=== PATIENT | female | born 1990 | race American Indian/Alaskan Native ===

== ENCOUNTER 2018-11-11 12:42 | Emergency (ER) | payer OTHER ==
[2018-11-11] MEDS ORDERED: TYLENOL PO ONE (12:50)
--- NOTE | 2018-11-11 12:50 | Emergency Department Report ---
Chief Complaint: Sore Throat Stated Complaint: SORE THROAT/CHILLS Time Seen by Provider: 11/11/18 12:47 - HPI History of Present Illness: pt presents with a sore throat that began last night +fever hurts to swallow no sick contacts no PMHx no daily meds no allergies to meds +smoker, 1/2 PPD occ drinker +marijuana no other drug use rapid strep sent given tylenol in triage MSE screening note: Focused history and physical exam performed. Due to findings the following was ordered: rapid strep ED Disposition for MSE Condition: Stable
[2018-11-11] MEDS ORDERED: TYLENOL ONE (12:53)
[2018-11-11] MEDS ORDERED: IBUPROFEN PO ONE (13:20)
[2018-11-11] MEDS ORDERED: BICILLIN L-A IM ONE (13:20)
[2018-11-11] MEDS ORDERED: LIDOCAINE VISCOUS 2% MM ONE (13:21)
[2018-11-11 13:45] VITALS: BP 116/70
--- NOTE | 2018-11-11 13:48 | Emergency Department Report ---
ED ENT HPI - General Chief complaint: Sore Throat Stated complaint: SORE THROAT/CHILLS Time Seen by Provider: 11/11/18 12:47 Source: patient Mode of arrival: Ambulatory Limitations: No Limitations - History of Present Illness Initial comments: This is a 28-year-old female nontoxic, well nourished in appearance, no acute signs of distress presents to the ED with c/o of sore throat. Patient describes sore throat as swallowing razer blades. Patient agrees to fever and chills. Patient denies any headache, stiff neck, nausea, vomiting, chest pain, shortness of breath, numbness or tingling. Patient denies any drooling or hoarseness. Patient denies any allergies or significant past medical history. MD complaint: sore throat -: days(s) Location: throat Severity: mild Severity scale (0 -10): 8 Quality: aching Consistency: constant Improves with: none Worsens with: swallowing Associated Symptoms: fever, pain with swallowing, sore throat. denies: cough, gum swelling, toothache, tinnitus, hearing loss, discharge from ear, rhinorrhea - Related Data Previous Rx's Medication Instructions Recorded Last Taken Type Ibuprofen [Motrin] 600 mg PO Q6H PRN #20 tablet 11/11/18 Unknown Rx Nystas/Diphen/Xyl Visc/Mylanta 15 ml MM Q4H PRN 5 Days ml 11/11/18 Unknown Rx [Magic Mouthwash] Allergies Allergy/AdvReac Type Severity Reaction Status Date / Time No Known Allergies Allergy Unverified 11/11/18 12:45 ED Dental HPI - General Chief complaint: Sore Throat Stated complaint: SORE THROAT/CHILLS Time Seen by Provider: 11/11/18 12:47 Source: patient Mode of arrival: Ambulatory Limitations: No Limitations - Related Data Previous Rx's Medication Instructions Recorded Last Taken Type Ibuprofen [Motrin] 600 mg PO Q6H PRN #20 tablet 11/11/18 Unknown Rx Nystas/Diphen/Xyl Visc/Mylanta 15 ml MM Q4H PRN 5 Days ml 11/11/18 Unknown Rx [Magic Mouthwash] Allergies Allergy/AdvReac Type Severity Reaction Status Date / Time No Known Allergies Allergy Unverified 11/11/18 12:45 ED Review of Systems ROS: Stated complaint: SORE THROAT/CHILLS Other details as noted in HPI Constitutional: chills, fever Eyes: denies: eye pain, eye discharge, vision change ENT: throat pain. denies: ear pain Respiratory: denies: cough, shortness of breath, wheezing Cardiovascular: denies: chest pain, palpitations Endocrine: no symptoms reported Gastrointestinal: denies: abdominal pain, nausea, diarrhea Genitourinary: denies: urgency, dysuria, discharge Musculoskeletal: denies: back pain, joint swelling, arthralgia Skin: denies: rash, lesions Neurological: denies: headache, weakness, paresthesias Psychiatric: denies: anxiety, depression Hematological/Lymphatic: denies: easy bleeding, easy bruising ED Past Medical Hx - Past Medical History Previous Medical History?: No - Surgical History Past Surgical History?: No - Social History Smoking Status: Current Every Day Smoker Substance Use Type: Alcohol, Marijuana, Non Opiate Pain - Medications Home Medications: Home Medications Medication Instructions Recorded Confirmed Last Taken Type Ibuprofen [Motrin] 600 mg PO Q6H PRN #20 tablet 11/11/18 Unknown Rx Nystas/Diphen/Xyl Visc/Mylanta 15 ml MM Q4H PRN 5 Days ml 11/11/18 Unknown Rx [Magic Mouthwash] ED Physical Exam - General Limitations: No Limitations General appearance: alert, in no apparent distress - Head Head exam: Present: atraumatic, normocephalic - Expanded ENT Exam Expanded Ear exam: Present: normal external inspection Mouth exam: Present: normal external inspection. Absent: drooling, trismus, muffled voice Throat exam: Positive: tonsillar erythema, tonsillomegaly (2+), other (uvula midline). Negative: tonsillar exudate, R peritonsillar mass, L peritonsillar mass - Neck Neck exam: Present: normal inspection, full ROM, lymphadenopathy (bilateral tonsillar). Absent: tenderness, meningismus - Respiratory Respiratory exam: Present: normal lung sounds bilaterally. Absent: respiratory distress, wheezes, rales, rhonchi, stridor, chest wall tenderness, accessory muscle use, decreased breath sounds, prolonged expiratory - Cardiovascular Cardiovascular Exam: Present: regular rate, normal rhythm, tachycardia, normal heart sounds. Absent: irregular rhythm, systolic murmur, diastolic murmur, rubs, gallop - Extremities Exam Extremities exam: Present: normal inspection, full ROM - Back Exam Back exam: Present: normal inspection, full ROM - Neurological Exam Neurological exam: Present: alert, oriented X3 - Psychiatric Psychiatric exam: Present: normal affect, normal mood - Skin Skin exam: Present: warm, dry, intact, normal color. Absent: rash ED Course Vital Signs 11/11/18 11/11/18 11/11/18 12:47 12:55 13:35 Temperature 100.6 F H Pulse Rate 115 H Respiratory 20 20 17 Rate Blood Pressure 149/83 O2 Sat by Pulse 97 Oximetry 11/11/18 13:36 Temperature Pulse Rate Respiratory 16 Rate Blood Pressure O2 Sat by Pulse Oximetry - Reevaluation(s) Reevaluation #1: 11/11/18 13:46 Patient is speaking in full sentences with no signs of distress noted. ED Medical Decision Making - Medical Decision Making This is a 28-year-old female that presents with strep pharyngitis. Patient is stable was examined by me. There is no drooling. No tonsillar abscess noted. Uvula is midline. Patient received Bicillin IM in the ED. Vital signs are stable. Patient is not febrile and normal heart rate. Patient was instructed to Follow-up with a primary care doctor in 3-5 days or if symptoms worsen and continue return to emergency room as soon as possible. At time of discharge, the patient does not seem toxic or ill in appearance. No acute signs of distress noted. Patient agrees to discharge treatment plan of care. No further questions noted by the patient. Critical care attestation.: If time is entered above; I have spent that time in minutes in the direct care of this critically ill patient, excluding procedure time. ED Disposition Clinical Impression: Strep pharyngitis Disposition: DC-01 TO HOME OR SELFCARE Is pt being admited?: No Does the pt Need Aspirin: No Condition: Stable Instructions: Strep Throat (ED) Additional Instructions: Follow-up with a primary care doctor in 3-5 days or if symptoms worsen and continue return to emergency room as soon as possible. Prescriptions: Nystas/Diphen/Xyl Visc/Mylanta [Magic Mouthwash] 15 ml MM Q4H PRN 5 Days ml PRN Reason: Sore Throat Ibuprofen [Motrin] 600 mg PO Q6H PRN #20 tablet PRN Reason: Pain/Fever Referrals: PRIMARY CARE, [Referring] - 3-5 Days NATALIE ROMAN MD [Staff Physician] - 3-5 Days [facility] [Outside] - 3-5 Days [facility] [Outside] - 3-5 Days Forms: Work/School Release Form(ED)
== END 2018-11-11 14:10 | disposition home or self-care (01) ==
LOC: ED 12:42
DX: J02.0 Streptococcal pharyngitis (principal); F17.200 Nicotine dependence, unspecified, uncomplicated; F12.10 Cannabis abuse, uncomplicated
CPT/HCPCS: 87430; 96372; 99283; J0561

== ENCOUNTER 2020-09-24 12:06 | Emergency (ER) | payer OTHER ==
[2020-09-24 12:18] VITALS: BP 123/63
== END 2020-09-24 14:27 ==
LOC: ED 12:06
DX: Z34.01 Encounter for supervision of normal first pregnancy, first trimester (principal); Z53.21 Procedure and treatment not carried out due to patient leaving prior to being seen by health care provider

== ENCOUNTER 2020-09-24 17:11 | Emergency (ER) | payer MEDICAID, OTHER ==
[2020-09-24 17:55] VITALS: BP 113/60
--- NOTE | 2020-09-24 19:06 | Emergency Department Report ---
ED General Adult HPI - General Chief complaint: Medical Clearance Stated complaint: Time Seen by Provider: 09/24/20 18:00 Source: patient Mode of arrival: Ambulatory Limitations: No Limitations - History of Present Illness Initial comments: 29-year-old obese abdomen female emerge department complaining very strong possibility for after receiving 2+ home test came to the emergency department to be evaluated for and confirmation. Ports no fever, chills, sweats. Ports no vaginal discharge, no chest pain, no pal pitations, no nausea, no vomiting. - Related Data Home Medications Medication Instructions Recorded Confirmed Last Taken No Known Home Medications [No 09/24/20 09/24/20 Unknown Reported Home Medications] Allergies Allergy/AdvReac Type Severity Reaction Status Date / Time bee venom protein (honey bee) AdvReac Anaphylaxis Verified 09/24/20 12:18 ED Review of Systems ROS: Stated complaint: Other details as noted in HPI Comment: All other systems reviewed and negative ED Past Medical Hx - Past Medical History Previous Medical History?: No - Surgical History Past Surgical History?: No - Social History Smoking Status: Never Smoker Substance Use Type: None - Medications Home Medications: Home Medications Medication Instructions Recorded Confirmed Last Taken Type No Known Home Medications [No 09/24/20 09/24/20 Unknown History Reported Home Medications] ED Physical Exam - General Limitations: No Limitations General appearance: alert, in no apparent distress - Head Head exam: Present: atraumatic, normocephalic - Eye Eye exam: Present: normal appearance - ENT ENT exam: Present: mucous membranes moist - Neck Neck exam: Present: normal inspection - Respiratory Respiratory exam: Present: normal lung sounds bilaterally. Absent: respiratory distress - Cardiovascular Cardiovascular Exam: Present: regular rate, normal rhythm. Absent: systolic murmur, diastolic murmur, rubs, gallop - GI/Abdominal GI/Abdominal exam: Present: soft, normal bowel sounds - Extremities Exam Extremities exam: Present: normal inspection - Back Exam Back exam: Present: normal inspection - Neurological Exam Neurological exam: Present: alert, oriented X3 - Psychiatric Psychiatric exam: Present: normal affect, normal mood - Skin Skin exam: Present: warm, dry, intact, normal color. Absent: rash ED Course Vital Signs 09/24/20 17:52 Temperature 99.3 F Pulse Rate 79 Respiratory 18 Rate Blood Pressure 113/60 O2 Sat by Pulse 99 Oximetry ED Medical Decision Making - Lab Data Lab Results 09/24/20 Range/Units 18:10 HCG, Quant 49205 H (0-4) mIU/mL - Medical Decision Making 9-year-old female presents department for confirmation of her was found to have elevated hCG quantitative. Critical care attestation.: If time is entered above; I have spent that time in minutes in the direct care of this critically ill patient, excluding procedure time. ED Disposition Clinical Impression: Positive blood test Disposition: TO HOME OR SELFCARE Is pt being admited?: No Does the pt Need Aspirin: No Condition: Stable Instructions: Care, and the Partner's Role, Home Test Information Additional Instructions: Please be sure to follow-up with [facility] for your definitive management of your . This present time there is no indication for any urgent or even emergency /first trimester or second trimester conditions. Referrals: PRIMARY CARE [Primary Care Provider] - 3-5 Days [facility] [Provider Group] - 3-5 Days [facility] [Provider Group] - 3-5 Days
== END 2020-09-24 19:56 | disposition home or self-care (01) ==
LOC: ED 17:11
DX: Z32.01 Encounter for pregnancy test, result positive (principal); Z91.030 Bee allergy status
CPT/HCPCS: 36415; 84702

== ENCOUNTER 2021-04-29 20:24 | Inpatient (IN) | payer MEDICAID ==
[2021-04-29] MEDS ORDERED: LACTATED RINGERS 1,000 ML ONE (21:40)
[2021-04-29] MEDS ORDERED: FAMOTIDINE 20 MG/2 ML INJ IV ONE ×2 (21:42→22:21)
[2021-04-29] MEDS ORDERED: ceFAZolin/Water 2 GM/20 ML 2 GM/20 ML SYRINGE IV ONE (21:42)
[2021-04-29] MEDS ORDERED: METOCLOPRAMIDE 10 MG/2 ML INJ ONE (21:42)
[2021-04-29] MEDS ORDERED: BICITRA ORAL LIQD 30ML ONE (21:42)
[2021-04-29] MEDS ORDERED: OXYTOCIN DRIP 30,000 MILLIUNITS/500 ML BAG IV ONE (21:43)
--- NOTE | 2021-04-29 22:06 | Ultrasound Report ---
ULTRASOUND OBSTETRIC LIMITED INDICATION / CLINICAL INFORMATION: viability. Clinical Gestational Age (GA) in weeks, days: 39, 2 TECHNIQUE: Transabdominal. COMPARISON: None available. FINDINGS: HEART RATE (beats per minute): 0 PRESENTATION: Cephalic. ADDITIONAL FINDINGS: None. IMPRESSION: 1. demise Signer Name: Will Rodriguez DO Signed: 04/29/2021 10:02 PM Workstation Name: [email or web address] (acquired by [employer] in [id number]
[2021-04-29] MEDS ORDERED: METOCLOPRAMIDE 10 MG/2 ML INJ IV ONE (22:21)
[2021-04-29] MEDS ORDERED: BICITRA ORAL LIQD 30ML PO ONE (22:21)
[2021-04-29] MEDS ORDERED: LACTATED RINGERS 1,000 ML IV SCH (22:30)
[2021-04-29] MEDS ORDERED: ceFAZolin/Water 2 GM/20 ML 2 GM/20 ML SYRINGE IV NR (23:00)
[2021-04-29] MEDS ORDERED: OXYTOCIN DRIP 30 UNITS/500 ML BAG IV SCH (23:00)
[2021-04-29 23:08] LABS: Basophils % (Auto) 0.6 % (0.0-1.8); Eosinophils % (Auto) 0.5 % (0.0-4.3); Hematocrit 39.8 % (30.3-42.9); Hemoglobin 13.4 gm/dl (10.1-14.3); Lymphocytes # (Auto) 1.9 K/mm3 (1.2-5.4); Lymphocytes % (Auto) 27.6 % (13.4-35.0); Mean Corpuscular HGB Conc 34 % (30-34); Mean Corpuscular Volume 79 fl (79-97); Monocytes # (Auto) 0.4 K/mm3 (0.0-0.8); Monocytes % (Auto) 5.8 % (0.0-7.3); Platelet Count 336 K/mm3 (140-440); Red Blood Count 5.07 M/mm3 (3.65-5.03); Red Cell Distribution Width 16.2 % (13.2-15.2)
--- NOTE | 2021-04-29 23:16 | History and Physical Report ---
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 She is GBS Negative. 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 Family/Genetic History: diabetes, hypertension Social history: no significant social history - Obstetrical History Expected Date of Delivery: 05/06/21 Actual Gestation: 39 Week(s) 0 Day(s) : 1 Medications and Allergies Allergies Allergy/AdvReac Type Severity Reaction Status Date / Time bee venom protein (honey bee) AdvReac Anaphylaxis Verified 04/29/21 21:53 Home Medications Medication Instructions Recorded Confirmed Last Taken Type No Known Home Medications [No 09/24/20 09/24/20 Unknown History Reported Home Medications] Active Meds: Active Medications Lactated Ringer's (Lactated Ringers) 1,000 mls @ 2,250 mls/hr IV PREOP LISANDRA Stop: 04/30/21 22:57 Oxytocin/Sodium Chloride (Pitocin/Ns 30 Unit/500ml) 30 units in 500 mls @ 0 mls/hr IV TITR LISANDRA; Protocol Cefazolin Sodium (Ancef/Sterile Water 2 Gm/20 Ml) 2 gm in 20 mls @ 80 mls/hr IV PREOP NR; Protocol Stop: 04/30/21 22:59 Review of Systems All systems: negative - Vital Signs Vital signs: Vital Signs Pulse Pulse Ox 97 H 98 04/29/21 21:25 04/29/21 21:25 Temp Pulse Resp BP Pulse Ox 99 F 112 H 19 124/69 96 04/29/21 21:57 04/29/21 22:55 04/29/21 21:57 04/29/21 22:50 04/29/21 22:55 - Physical Exam Breasts: Positive: deferred Abdomen: Positive: soft (gravid, obese ) Uterus: Positive: enlarged (gravid ) Extremities: Positive: edema (trace ) - Obstetrical Uterine Contraction Monitor Mode: External Uterine Contraction Pattern: Absent Uterine Tone Measurement Phase: Resting Results Result Diagrams: 04/29/21 Unknown Abnormal lab results 04/29/21 04/29/21 Range/Units 22:08 Unknown RBC 5.07 H (3.65-5.03) M/mm3 MCH 26 L (28-32) pg RDW 16.2 H (13.2-15.2) % POC Glucose 159 H (70-105) mg/dL All other labs normal. 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
[2021-04-30] MEDS ORDERED: METHYLERGONOVINE MALEATE 0.2 MG/ML VIAL IM ONE (00:32)
[2021-04-30] MEDS ORDERED: HYDROmorphone 1 MG/1 ML INJ IV PRN (00:36)
[2021-04-30] MEDS ORDERED: PROMETHAZINE 25 MG TAB PO PRN (00:36)
[2021-04-30] MEDS ORDERED: PROMETHAZINE 25 MG RECT SUPP PR PRN (00:36)
[2021-04-30] MEDS ORDERED: NalbUPHINE 10 MG/1 ML INJ IV PRN (00:36)
[2021-04-30] MEDS ORDERED: ONDANSETRON 4 MG/2 ML INJ IV PRN ×2 (00:36→04:35)
[2021-04-30] MEDS ORDERED: NALOXONE 0.4 MG/1 ML INJ IV PRN ×2 (00:36→04:35)
[2021-04-30] MEDS ORDERED: diphenhydrAMINE 50 MG/ML VIAL IV PRN (00:36)
--- NOTE | 2021-04-30 00:37 | Anesthesia Day of Surgery ---
Anesthesia Day of Surgery - Day of Surgery Patient Examined: Yes Patient H&P Reviewed: Yes Patient is NPO: Yes Beta Blockers: No Cardiac Clearance: No Pulmonary Clearance: No Hector's Test: N/A
--- NOTE | 2021-04-30 00:38 | Anesthesia Consultation ---
Anesthesia Consult and Med Hx Date of service: 04/30/21 - Airway Anesthetic Teeth Evaluation: Good ROM Head & Neck: Adequate Mental/Hyoid Distance: Adequate Mallampati Class: Class III Intubation Access Assessment: Possibly Difficult - Pulmonary Exam CTA: Yes - Cardiac Exam Cardiac Exam: RRR - Pre-Operative Health Status ASA Pre-Surgery Classification: ASA2 Proposed Anesthetic Plan: Spinal Nerve Block: TAP - Pulmonary Hx Smoking: No Hx Asthma: No COPD: No Hx Pneumonia: No Hx Sleep Apnea: No - Cardiovascular System Hx Hypertension: No Hx Heart Attack/AMI: No Hx Angina: No - Central Nervous System Hx Seizures: No Hx Psychiatric Problems: No - Gastrointestinal Hx Gastroesophageal Reflux Disease: No - Endocrine Hx Renal Disease: No Hx End Stage Renal Disease: No Hx Liver Disease: No Hx Insulin Dependent Diabetes: No Hx Non-Insulin Dependent Diabetes: No Hx Hypothyroidism: No Hx Hyperthyroidism: No - Hematic Hx Anemia: No Hx Sickle Cell Disease: No - Other Systems Hx Alcohol Use: No Hx Obesity: Yes
[2021-04-30] MEDS ORDERED: BUPIVACAINE/PF (0.5%) 5 MG/1 ML 30 ML VIAL INFILTRATI ONE (00:42)
[2021-04-30] MEDS ORDERED: KETOROLAC 30 MG/1 ML INJ ONE (00:42)
[2021-04-30] MEDS ORDERED: MIDAZOLAM 2 MG/2 ML INJ ONE (00:52)
[2021-04-30] MEDS ORDERED: ceFAZolin/STERILE WATER 2 GM/20 ML SYRINGE IV ONE (01:15)
[2021-04-30] MEDS ORDERED: WATER FOR IRRIG STERILE 1,500 ML BOTTLE IR ONE (01:25)
[2021-04-30] MEDS ORDERED: SODIUM CHLORIDE 0.9% IRR 1,500 ML BOTTLE IR ONE (01:25)
[2021-04-30] MEDS ORDERED: ePHEDrine SULFATE 50 MG/1 ML INJ ONE (01:27)
[2021-04-30] MEDS ORDERED: PHENYLEPHRINE/NS 1,000 MCG/10 ML SYRINGE (OR USE) IV ONE (01:27)
--- NOTE | 2021-04-30 02:33 | Procedure Note ---
OB Delivery Note - Delivery Date of Delivery: 04/30/21 Surgeon: JOSE COUGHLIN Estimated blood loss: other (367 mL) - Section Preop diagnosis: other ( demise ) Postop diagnosis: same section procedure: section Disposition: PACU Complications: none Narrative: Please see operative report - A at 1 minute: 0 at 5 minutes: 0 Infant Gender: Female (weight pending @ 0142 am)
--- NOTE | 2021-04-30 02:33 | Operative Report ---
Operative Report Operative Report: Date of procedure: April 30, 2021 Preoperative diagnosis: 1) IUP at 39w0d 2) Demise 3) Gestational Diabetes 4) Morbid Obesity Postoperative diagnosis: Same Procedure: Primary low transverse section Surgeon: Chel Escobar M.D. Anesthesia: Regional Findings: 1) Viable female , Apgars 0 and 0, weight pending in cephalic presentation. Cord presenting in front of head. Nuchal cord. Formed meconium. 2) Normal-appearing uterus ovaries and tubes Estimated blood loss: 354 mL IV fluids: 1000 mL Urine output: 100 mL, clear at the end of the procedure Drains: Chauhan to gravity Specimens: None Complications:None. Counts correct x 3 Disposition: Stable to PACU Indication for procedure: Pt is a 30 year old primigravida at 39w0d presented for induction secondary to morbid obesity and gestational diabetes and was found to have an intrauterine demise. She elects delivery. Operation in detail: After the risks, benefits, alternatives and complications were explained to the patient she gave informed consent for the procedure. She was subsequently taken to the operating room where regional anesthesia was noted to be adequate. She was placed in the dorsal supine position with leftward tilt and prepped and draped in a normal sterile fashion. heart tones were noted prior to incision. A timeout was performed. A Pfannenstiel skin incision was made with the knife and carried down to the layer of the fascia with the Bovie. The fascia was incised in the midline and the fascial incision was extended bilaterally with the Bovie. The fascial incision was then stretched. The rectus muscles were then in the midline and partially transected for adequate visualization. The peritoneum was then entered bluntly. The peritoneal incision was extended with good visualization of the bladder. The peritoneal incision was then stretched. An Nicolas retractor was placed. The bladder blade was then placed. The vesicouterine peritoneum was grasped with smooth pick ups and incised with Metzenbaum scissors. A bladder flap was then created digitally and the bladder blade was replaced. A transverse incision was made in the lower uterine segment with a knife and extended bilaterally with the bandage scissors. Amniotomy was performed with egress of clear fluid. head delivered with ease, followed by shoulders and body. bulb suctioned at delivery. Cord clamped and cut. handed to NICU staff in attendance. Cord blood was collected. The placenta was then delivered manually. The uterus was then exteriorized and cleared of all clots and debris. The hysterotomy was then reapproximated with 0 Moncryl in a running locked fashion. A second layer of the same suture was used in imbricating fashion. The hysterotomy was inspected and hemostasis was noted. The gutters were irrigated and cleared of all clots and debris. The uterus was placed back into the peritoneal cavity. The hysterotomy was again inspected and noted to be hemostatic. Surgicel was placed over the hysterotomy. The Nicolas retractor was removed. The peritoneum was reapproximated with 0 Monocryl in a running fashion incorporating the rectus muscles. Surgicel was placed over the rectus muscles. The fascia was reapproximated with 0 Vicryl in a running fashion. The subcutaneous tissue was reapproximated with 3-0 Vicryl in a running fashion. The skin was reapproximated with 3-0 Monocryl in a subcuticular fashion. The incision was then covered with steri strips and a pressure dressing. The procedure was then ended. The patient tolerated the procedure well and was taken to the PACU in stable condition. All instrument, lap, and needle counts were correct 3.
--- NOTE | 2021-04-30 02:35 | Progress Note ---
Spinal Anesthesia Block - Spinal Anesthesia Block Start Time: 01:00 Stop Time: 01:05 Performed by:: JUAN ESTRADA Procedure: Spinal anesthesia block is being performed for [C/S]. H&P, labs have been reviewed. Patient's questions and concerns have been answered. Informed consent has been performed. Timeout has was performed. Patient in sitting position on side of bed. Sterile prep and drape was performed. 3 mL 1% lidocaine skin wheal at L [3]-L [4]. Needle introducer advanced. 25-gauge spinal needle advanced, [+] CSF [-] blood. [Marcaine 10mg and Precedex 5mcg] Spinal dose was given. All needles removed. Patient tolerated procedure well.
[2021-04-30] MEDS ORDERED: ceFAZolin/NS 1 GM/50 ML 1 GM/50 ML BAG IV SCH (04:35)
[2021-04-30] MEDS ORDERED: SIMETHICONE 80 MG CHEW TAB PO PRN (04:35)
[2021-04-30] MEDS ORDERED: ACETAMINOPHEN 325 MG TAB PO PRN (04:35)
[2021-04-30] MEDS ORDERED: LANOLIN/ZINC/DIMETHICONE (LANSINOH) 7 GM TP PRN (04:35)
[2021-04-30] MEDS ORDERED: WITCH HAZEL/ GLYCERIN PAD TP PRN (04:35)
[2021-04-30] MEDS ORDERED: OXYTOCIN DRIP 30 UNITS/500 ML BAG IV SCH (04:35)
[2021-04-30] MEDS ORDERED: MAGNESIUM HYDROXIDE (MOM) ORAL LIQD UDC PO PRN (04:35)
[2021-04-30] MEDS: KETOROLAC 30 MG/1 ML INJ IV SCH ×4 (05:37→22:00)
--- NOTE | 2021-04-30 06:46 | Ultrasound Report ---
Limited OB ultrasound INDICATION: demise FINDINGS: No heart rate is identified. Single intrauterine in cephalic position. IMPRESSION: No heart rate suggesting demise. Signer Name: Matt Zarco MD Signed: 04/30/2021 6:42 AM Workstation Name: [id number]
--- NOTE | 2021-04-30 08:34 | Progress Note ---
Assessment and Plan A: DOS s/p primary at 39 wks for demise GDM Morbid Obesity P: Routine postoperative care Subjective - Subjective Date of service: 04/30/21 Principal diagnosis: DOS s/p primary for demise, GDM, MO Interval history: Patient has not been able to sleep since her surgery. She denies any new concerns. Patient reports: no voiding normally, no flatus, no ambulating normally [place]: Objective - Vital Signs Latest vital signs: Vital Signs Temp Pulse Resp BP BP Pulse Ox Pulse Ox 04/30/21 07:03 18 99 04/30/21 04:30 98.4 F 100 H 18 103/53 98 04/30/21 03:30 90 17 117/63 100 04/30/21 03:15 74 15 116/61 100 04/30/21 03:00 81 14 111/60 99 04/30/21 02:45 100 H 13 104/58 100 04/30/21 02:40 84 14 106/54 99 04/30/21 02:35 100 H 14 100/50 100 04/30/21 02:30 97.5 F L 102 H 17 88/42 98 04/30/21 00:43 98.2 F 100 H 113/56 04/29/21 22:55 112 H 96 04/29/21 22:50 101 H 124/69 100 04/29/21 22:45 98 H 100 04/29/21 22:40 96 H 99 04/29/21 22:35 106 H 99 04/29/21 22:34 100 H 128/66 04/29/21 22:30 104 H 99 04/29/21 22:25 107 H 99 04/29/21 22:20 103 H 100 04/29/21 22:19 107 H 159/103 04/29/21 22:15 100 H 99 04/29/21 22:10 106 H 100 04/29/21 22:05 105 H 100 04/29/21 22:00 107 H 99 04/29/21 21:57 99 F 113 H 19 128/70 100 04/29/21 21:55 105 H 99 04/29/21 21:50 98 H 128/70 99 04/29/21 21:45 121 H 99 04/29/21 21:40 112 H 100 04/29/21 21:35 105 H 98 04/29/21 21:30 114 H 98 04/29/21 21:25 97 H 98 Intake and Output 04/29/21 04/30/21 04/30/21 22:59 06:59 14:59 Intake Total 1500 Output Total 460 Balance 1040 Intake: IV 1500 Output: Urine 460 Uretheral (Chauhan) 180 Other: Weight 98.883 kg Estimated Blood Loss 367 - Exam Breasts: Present: deferred Abdomen: Present: soft, distention (moderate ) Extremities: Present: edema (trace) Incision: Present: dressed - Labs Labs: Abnormal lab results 04/29/21 04/29/21 Range/Units 22:08 Unknown RBC 5.07 H (3.65-5.03) M/mm3 MCH 26 L (28-32) pg RDW 16.2 H (13.2-15.2) % POC Glucose 159 H (70-105) mg/dL
[2021-04-30] MEDS ORDERED: ZOLPIDEM 5 MG TAB PO PRN (09:30)
[2021-04-30] MEDS: FERROUS SULFATE 325 MG TAB PO SCH (10:33)
[2021-04-30] MEDS: ceFAZolin/NS 1 GM/50 ML 1 GM/50 ML BAG IV SCH ×2 (10:34→17:37)
[2021-04-30] MEDS ORDERED: LACTATED RINGERS 1,000 ML ONE (10:40)
[2021-04-30] MEDS ORDERED: LACTATED RINGERS 1000 ML IV SOLN IV SCH (12:30)
--- NOTE | 2021-04-30 13:38 | Post Anesthesia Evaluation ---
- Post Anesthesia Evaluation Patient Participated: Yes Airway Patent: Yes Stable Respiratory Function: Yes Nausea/Vomiting: No Temp > 96.8F: Yes Pain Manageable: Yes Adequeate Hydration: Yes Anesthesia Complications: No Block Receding Appropriately: Yes Patient on Ventilator: No
[2021-04-30] MEDS: oxyCODONE /ACETAMINOPHEN 5-325MG TAB PO PRN ×2 (14:44→23:42)
[2021-04-30 16:57] LABS: Hematocrit 31.2 % (30.3-42.9); Hemoglobin 10.7 gm/dl (10.1-14.3)
[2021-05-01] MEDS ORDERED: TETANUS,DIPH,PERTUSS(ACELL) VACCINE 0.5 ML SYRINGE IM ONE (02:46)
[2021-05-01] MEDS ORDERED: MEASLES, MUMPS & RUBELLA 12,500 UNIT/0.5 ML VACCINE SUB-Q ONE (02:46)
[2021-05-01] MEDS: oxyCODONE /ACETAMINOPHEN 5-325MG TAB PO PRN ×3 (08:05→21:35)
[2021-05-01] MEDS: FERROUS SULFATE 325 MG TAB PO SCH (09:41)
[2021-05-01] MEDS: IBUPROFEN 800 MG TAB PO PRN ×2 (10:59→17:12)
--- NOTE | 2021-05-01 16:47 | Progress Note ---
Assessment and Plan Postop day 1 status post primary for demise at term. Patient doing well. Adjusting as expected. Patient is in with her mother who is obviously concerned, however patient appears to be coping well. Continue routine care. Subjective - Subjective Date of service: 05/01/21 Principal diagnosis: DOS s/p primary for demise, GDM, MO Patient reports: appetite normal, voiding normally, pain well controlled, flatus, ambulating normally [place]: Objective - Vital Signs Latest vital signs: Vital Signs Temp Pulse Resp BP BP Pulse Ox Pulse Ox 05/01/21 16:11 97.9 F 91 H 18 117/60 99 05/01/21 14:20 18 05/01/21 14:17 97.6 F 104 H 48 H 114/66 98 05/01/21 13:00 100 05/01/21 07:15 98.6 F 99 H 18 114/70 100 05/01/21 04:20 98.3 F 96 H 18 124/56 100 05/01/21 01:46 98.5 F 106 H 20 108/67 99 05/01/21 00:42 18 04/30/21 23:42 18 04/30/21 22:30 18 04/30/21 22:00 18 04/30/21 20:43 98.2 F 102 H 20 123/77 100 04/30/21 20:00 98 Intake and Output 05/01/21 05/01/21 05/01/21 06:59 14:59 22:59 Output Total 300 Balance -300 Output: Urine 300 Void 300 Other: Total, Output Amount 300 # Voids Void 1 - Exam Cardiovascular: Present: Regular rate, Normal S1, Normal S2 Lungs: Present: Clear to auscultation, Normal air movement Abdomen: Present: normal appearance, soft, normal bowel sounds Uterus: Present: normal, firm Extremities: Present: normal Incision: Present: normal, dry, intact
[2021-05-02 08:37] VITALS: BP 103/59
[2021-05-02] MEDS: oxyCODONE /ACETAMINOPHEN 5-325MG TAB PO PRN ×2 (09:08→13:15)
[2021-05-02] MEDS: FERROUS SULFATE 325 MG TAB PO SCH (10:22)
[2021-05-02] MEDS: IBUPROFEN 800 MG TAB PO PRN (10:22)
--- NOTE | 2021-05-02 10:34 | Discharge Summary ---
Providers - Providers Date of Admission: 04/30/21 04:35 Date of discharge: 05/02/21 Attending physician: JOSE COUGHLIN 05/01/21 10:53 psychiatry consult [Consult to Mental Health] [CONS] Stat Reason For Exam: Nutrioso Scale 20, No suicidal ideations Primary care physician: JOSE COUGHLIN Hospitalization Reason for admission: IUFD Delivery: Procedure: primary low transverse Incision: normal, dry, intact Other procedures: none Discharge diagnosis: IUP at term delivered [place] baby: female Condition at discharge: Good Disposition: 01 HOME / SELF CARE / HOMELESS Plan - Discharge Medications Prescriptions: Docusate Sodium [Colace] 100 mg PO BID #60 capsule Ibuprofen [Motrin] 800 mg PO Q8HR PRN #40 tablet PRN Reason: Pain, Mild (1-3) oxyCODONE /ACETAMINOPHEN [Percocet 5/325] 2 tab PO Q6HR PRN #40 tablet PRN Reason: Pain - Provider Discharge Summary Activity: routine, no sex for 6 weeks, no heavy lifting 4 weeks, no strenuous exercise Diet: routine Instructions: routine Additional instructions: [] Smoking cessation referral if applicable(refer to patient education folder for contact #) [] Refer to [facility] Booklet Call your doctor immediately for: * Fever > 100.5 * Heavy vaginal bleeding ( >1 pad per hour) * Severe persistent headache * Shortness of breath * Reddened, hot, painful area to leg or breast * Drainage or odor from incision. * Keep incision clean and dry at all times and follow doctor's instructions regarding bathing/showering - Follow up plan Follow up: JOSE COUGHLIN MD [Primary Care Provider] - 7 Days Forms: [facility] Discharge Summary, Work/School Release Form
--- NOTE | 2021-05-02 12:12 | Consultation ---
History of Present Illness - Reason for Consult Consult date: 05/02/21 Reason for consult: Mental health evaluation - Chief Complaint Chief complaint: scheduled induction of labor - History of Present Psychiatric Illness The patient is 30 year old female with no prior psychiatric history and she is naive to psychotropic medications. During my interview with the patient, she is calm, alert, oriented x3 and cooperative. The patient reports that she feels angry because she lost her baby. The patient denies being depressed or having excessive nervousness. She denies any current suicidal/homicidal ideation and denies hallucinations. PAST PSYCHIATRIC HISTORY: Diagnoses:Denies Suicide attempts or Self-harm behavior: Denies Prior psychiatric hospitalizations: Denies Substance Abuse history: Denies Previous psychiatric medications tried:Denies Outpatient treatment: Denies PAST MEDICAL HISTORY: None reported or document Family Psychiatric History: None reported or documented SOCIAL HISTORY Marital Status: Single Living Arrangements: Lives with mother Employment Status: unemployed Access to guns/weapons: Denies Education: GED History of Abuse: Denies Legal History: unknown REVIEW OF SYSTEMS Constitutional: Negative for weight loss ENT: Negative for stridor Respiratory: Negative for cough or hemoptysis All other systems reviewed and are negative MENTAL STATUS EXAMINATION General Appearance and Behavior: Age appropriate, good hygiene, wearing appropriate clothes. calm, cooperative Cooperation: Cooperative Psychomotor Behavior: Psychomotor normal Mood: Angry Affect and affective range: congruent with stated mood Thought Process: Goal directed Thought Content: Not suicidal Speech: normal tone and pace Suicidal Ideation:Denies Homicidal Ideation: Denies Hallucinations: Denies Delusions: None elicited Impulse Control: Normal Insight and Judgment: Limited Memory: Limited Attention: attentive Orientation: a/o x 3 Assessment (1) Current Visit: Yes Status: Acute Treatment Plan Continue previously prescribed medications and follow up with outpatient psychiatry in 7 to 10 days upon discharge. The patient to comply with previously prescribed medications Risks, benefits and alternatives of medications discussed with the patient, questions answered and consent obtained from patient. PSYCHOTHERAPY: Supportive psychotherapy provided MEDICAL: Per primary team DELIRIUM PRECAUTIONS: Please re-orient patient frequently, keep lights on during the day, and minimize benzodiazepines and opiates as these medications could wo rsen patient's confusion. MARKETING PRODUCTION MANAGER: Defer to primary DISPOSITION: Do not recommend acute psychiatric inpatient treatment. [employer] will provide patient with psychiatric outpatient resources. The sitter to give the patient resources and safety plan The patient to comply with treatment regimen and abstain from all illicit drug use. FOLLOW-UP: Will sign off. Case staffed with Dr. Chen Medications and Allergies Medications and Allergies Allergies Allergy/AdvReac Type Severity Reaction Status Date / Time bee venom protein (honey bee) AdvReac Anaphylaxis Verified 04/29/21 21:53 Home Medications Medication Instructions Recorded Confirmed Last Taken Type Docusate Sodium [Colace] 100 mg PO BID #60 capsule 05/01/21 Unknown Rx Ibuprofen [Motrin] 800 mg PO Q8HR PRN #40 tablet 05/01/21 Unknown Rx oxyCODONE /ACETAMINOPHEN [Percocet 2 tab PO Q6HR PRN #40 tablet 05/01/21 U nknown Rx 5/325] Active Meds: Active Medications Acetaminophen (Acetaminophen 325 Mg Tab) 650 mg PO Q4H PRN PRN Reason: Fever >100.5/POSADA Diphenhydramine HCl (Diphenhydramine 50 Mg/Ml Vial) 12.5 mg IV Q2H PRN PRN Reason: Itching Ferrous Sulfate (Ferrous Sulfate 325 Mg Tab) 325 mg PO QDAY LISANDRA Last Admin: 05/02/21 10:22 Dose: 325 mg Documented by: Hydromorphone HCl (Hydromorphone 1 Mg/1 Ml Inj) 0.5 mg IV Q4H PRN PRN Reason: breakthrough pain > 7/10 Last Admin: 04/30/21 07:03 Dose: 0.5 mg Documented by: Oxytocin/Sodium Chloride (Pitocin/Ns 30 Unit/500ml) 30 units in 500 mls @ 40 mls/hr IV TITR LISANDRA; Protocol Ibuprofen (Ibuprofen 800 Mg Tab) 800 mg PO Q6H PRN PRN Reason: Pain, Moderate (4-6) Last Admin: 05/02/21 10:22 Dose: 800 mg Documented by: Lactated Ringer's (Lactated Ringers 1000 Ml Iv Soln) 1,000 ml IV DIRECT LISANDRA Magnesium Hydroxide (Magnesium Hydroxide (Mom) Oral Liqd Udc) 30 ml PO QHS PRN PRN Reason: Constip Unrelieved By Senna Multi-Ingredient Ointment (Lanolin/Zinc/Dimethicone (Lansinoh) 7 Gm) 1 applic TP PRN PRN PRN Reason: dryness/cracking Nalbuphine HCl (Nalbuphine 10 Mg/1 Ml Inj) 2.5 mg IV Q2H PRN PRN Reason: Itching Naloxone HCl (Naloxone 0.4 Mg/1 Ml Inj) 0.2 mg IV Q2MIN PRN PRN Reason: Res Rate </= 8 or 02 SAT < 92% Naloxone HCl (Naloxone 0.4 Mg/1 Ml Inj) 0.1 mg IV Q2MIN PRN PRN Reason: Res Rate </= 8 or 02 SAT < 92% Ondansetron HCl (Ondansetron 4 Mg/2 Ml Inj) 4 mg IV Q8H PRN PRN Reason: Nausea And Vomiting Oxycodone/Acetaminophen (Oxycodone /Acetaminophen 5-325mg Tab) 2 tab PO Q4H PRN PRN Reason: Pain, Moderate (4-6) Last Admin: 05/02/21 09:08 Dose: 2 tab Documented by: Promethazine HCl (Promethazine 25 Mg Tab) 25 mg PO Q6H PRN PRN Reason: Nausea And Vomiting Promethazine HCl (Promethazine 25 Mg Rect Supp) 25 mg OH Q6H PRN PRN Reason: Nausea And Vomiting Simethicone (Simethicone 80 Mg Chew Tab) 80 mg PO Q6H PRN PRN Reason: Gas pain Sodium Chloride (Sodium Chloride 0.9% 10 Ml Flush Syringe) 10 ml IV PRN NR Stop: 05/06/21 04:34 Witch Annabelle/Glycerin (Witch Annabelle/ Glycerin Pad) 1 each TP PRN PRN PRN Reason: Hemorrhoids/cleansing/soothing Zolpidem Tartrate (Zolpidem 5 Mg Tab) 10 mg PO ONCE PRN PRN Reason: Insomnia Last Admin: 04/30/21 10:33 Dose: 10 mg Documented by: Mental Status Exam - Vital signs Last Vital Signs Temp 98.8 F 05/02/21 07:20 Pulse 95 H 05/02/21 07:20 Resp 18 05/02/21 07:20 BP 103/59 05/02/21 07:20 Pulse Ox 99 05/02/21 08:59 Results Result Diagrams: 04/30/21 16:35 All other labs normal.
== END 2021-05-02 13:20 | disposition home or self-care (01) | DRG 765 ==
LOC: TRG 20:24 → LD 20:29 → TRG 04-30 04:35 → OB 04-30 05:20
PROVIDERS: ADMIT Obstetrics & Gynecology; ATTEND Obstetrics & Gynecology
PROC: 10D00Z1 Extraction of Products of Conception, Low, Open Approach (ICD-10-PCS; principal; 2021-04-30)
PROC: 3E0234Z Introduction of Serum, Toxoid and Vaccine into Muscle, Percutaneous Approach (ICD-10-PCS; 2021-05-01)
DX: O36.4XX0 Maternal care for intrauterine death, not applicable or unspecified (principal); O98.32 Other infections with a predominantly sexual mode of transmission complicating childbirth; Z3A.39 39 weeks gestation of pregnancy; Z37.1 Single stillbirth; Z83.3 Family history of diabetes mellitus; Z82.49 Family history of ischemic heart disease and other diseases of the circulatory system; Z20.822 Contact with and (suspected) exposure to COVID-19; O99.214 Obesity complicating childbirth; E66.01 Morbid (severe) obesity due to excess calories; A60.00 Herpesviral infection of urogenital system, unspecified; O69.81X0 Labor and delivery complicated by cord around neck, without compression, not applicable or unspecified; O24.429 Gestational diabetes mellitus in childbirth, unspecified control; Z23 Encounter for immunization
CPT/HCPCS: 36415; 76815; 82962; 85014; 85018; 85025; 86850; 86900; 86901; 88307; G0378; J0690; J1170; J1885; J2250; J2370; J2765; J3490; U0003